=== PATIENT | female | born 1940 | race Caucasian/White ===

== ENCOUNTER 2016-09-08 09:50 | Emergency (ER) | payer MEDICARE, OTHER ==
[2016-09-08 10:13] VITALS: TEMP 97.6; BMI 29.3
[2016-09-08] MEDS ORDERED: SODIUM CHLORIDE 0.9% 10 ML FLUSH FLUSH PRN (10:20)
[2016-09-08] MEDS ORDERED: NS 1,000 ML IV ONE (10:20)
--- NOTE | 2016-09-08 10:53 | DIRPT ---
CLINICAL DATA: Left side numbness starting yesterday EXAM: PORTABLE CHEST 1 VIEW COMPARISON: 04/08/2012 FINDINGS: Cardiomediastinal silhouette is stable. No acute infiltrate or pleural effusion. No pulmonary edema. Mild hyperinflation again noted. Mild atherosclerotic calcifications of thoracic spine. Stable left basilar atelectasis or scarring. IMPRESSION: No active disease. Mild hyperinflation again noted. Electronically Signed By: Chas Saravia M.D. On: 09/08/2016 10:50
[2016-09-08 11:02] LABS: AUTOMATED BASOPHIL 0.4 % (0-2); AUTOMATED EOSINOPHIL 1.7 % (0-5); AUTOMATED LYMPH 32.1 % (17-44); AUTOMATED MONOCYTE 5.6 % (3-10); AUTOMATED NEUTROPHIL 60.2 % (45-76); MPV 7.8 fL (7.4-10.4)
[2016-09-08 11:14] LABS: PARTIAL THROMB. TIME 24.7 SEC (22-35)
[2016-09-08 11:18] LABS: BLOOD UREA NITROGEN 18 MG/DL (7-17); CALCIUM 9.6 MG/DL (8.4-10.2); CALCULATED OSMOLALITY 274 MOs/Kg (270-290); CHLORIDE 102 mEq/L (98-107); GLUCOSE 112 MG/DL (70-99); SODIUM LEVEL 141 mEq/L (137-146); TOTAL PROTEIN 7.4 G/DL (6.3-8.2)
--- NOTE | 2016-09-08 11:19 | DIRPT ---
CLINICAL DATA: Left-sided facial numbness for 24 hours. EXAM: CT HEAD WITHOUT CONTRAST TECHNIQUE: Contiguous axial images were obtained from the base of the skull through the vertex without intravenous contrast. COMPARISON: None. FINDINGS: Ventricles are normal in size, for this patient's age, and normal in configuration. There are no parenchymal masses or mass effect. There is no evidence of a recent cortical infarct. Small lacune infarct lies along the superior right caudate nucleus head. There are no extra-axial masses or abnormal fluid collections. There is no intracranial hemorrhage. Visualized sinuses and mastoid air cells are clear. No skull lesion. IMPRESSION: 1. No acute intracranial abnormalities. 2. Age appropriate volume loss. 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 Electronically Signed By: Uriel Huang M.D. On: 09/08/2016 11:16
--- NOTE | 2016-09-08 11:51 | EDPRACDOC ---
- General Information Chief Complaint: Neuro Symptoms/Deficits Stated Complaint: LT SIDE NUMBNESS Time Seen by Provider: 09/08/16 10:15 Information Source: Patient Home Medications: Home Medications Aspirin [Aspirin EC] 81 mg PO HS 09/08/16 Esomeprazole Magnesium [Nexium] 20 mg PO DAILY 09/08/16 Fenofibrate [Tricor] 145 mg PO DAILY 09/08/16 Furosemide [Lasix] 20 mg PO DAILY 09/08/16 Insulin Detemir [Levemir] 42 unit SQ HS 09/08/16 Losartan Potassium [Cozaar] 100 mg PO DAILY 09/08/16 Rosuvastatin Calcium [Crestor] 40 mg PO DAILY 09/08/16 Sitagliptin Phosphate [Januvia] 100 mg PO DAILY 09/08/16 Allergies/Adverse Reactions: Allergies Allergy/AdvReac Type Severity Reaction Status Date / Time levofloxacin [From Levaquin] Allergy Nausea/Vomi Verified 09/08/16 11:14 ting - History of Present Illness Onset: 09/07/16 1630 HPI: NUMBNESS FOR A COUPLE OF DAYS ON LEFT SIDE. NO WEAKNESS; DENIES OTHER SXS Symptoms Started: Reports: Gradually Weakness: Left: Other Symptoms: Reports: Numbness Associated signs and symptoms:: Reports: None ED Past Medical History - History Reviewed Yes Nurses notes reviewed and agree except as marked - Patient Medical History Respiratory History: Reports: COPD Musculoskeletal History: Reports: Arthritis Systemic History: Denies: Cancer Surgical History: Reports: Cholecystectomy - Social Medical History Smoking Status: Never smoker EDM Review of Systems - Review of Systems ROS Negative Except as Marked: Yes All systems reviewed and were negative except as marked - Physical Exam Constitutional: Alert (Awake), No apparent distress Oriented to: Time, Person, Place Last recorded Vital Signs: Last Vital Signs Temp 97.6 F 09/08/16 10:09 Pulse 62 09/08/16 11:01 Resp 18 09/08/16 11:01 BP 192/79 H 09/08/16 11:01 Pulse Ox 96 09/08/16 11:01 Oxygen Pulse Oxygen Saturation 96 O2 Device Room Air Oxygen Flow Rate Fraction of Inspired Oxygen ( FIO2) - HEENT Head: Normal ( normocephalic) Eye Exam: Normal (PERRL, EOMI, Sclera white) Oropharynx: Normal (Pharynx:Moist without exudate,Gums-no swelling) Tympanic Membrane: Normal ENT EAC: Normal TMJ: Normal Nose: No Symptoms Reported (septum midline) Neck: Normal (FROM, trachea at midline) - Respiratory/Cardiovascular Respiratory: Normal - CTA (BBS clear to auscultation without adventitious sounds ) Cardiovascular: Normal (RRR without murmur, gallop or rub) - GI Auscultation: Normal (NABS) Palpation: Normal (Soft,No rebound or guarding, non distended) Tenderness: Non tender Coker's Sign: Negative - Musculoskeletal Back: Normal (Non-Tender) Extremities: Normal (Normal tone, Pulses 2+ No cyanosis or edema, FROM) - Integumentary Skin: Normal, Warm, Dry Lymphatics: Normal (no adenopathy) - Neurologic Memory Impaired: Normal Motor Function: Normal (Normal tone, Pulses 2+ No cyanosis or edema, FROM) Cranial Nerve: Normal (CN II-X11 intact sensation, strength 5/5) Cerebellar: Normal Mood Description: Normal Perception: Normal - Results 09/08/16 10:40 09/08/16 10:40 WBC 7.4 xk/uL (3.8-10.8) 09/08/16 10:40 RBC 4.60 xM/uL (4.20-5.40) 09/08/16 10:40 Hgb 13.8 g/dL (12.0-16.0) 09/08/16 10:40 Hct 40.2 % (36-47) 09/08/16 10:40 MCV 87 fL (81-99) 09/08/16 10:40 MCH 30.0 pg (27-32) 09/08/16 10:40 MCHC 34.4 g/dl (33-36) 09/08/16 10:40 RDW 14.7 % (11.5-14.5) H 09/08/16 10:40 Plt Count 202 xk/uL (130-400) 09/08/16 10:40 MPV 7.8 fL (7.4-10.4) 09/08/16 10:40 Neut % (Auto) 60.2 % (45-76) 09/08/16 10:40 Lymph % (Auto) 32.1 % (17-44) 09/08/16 10:40 [place] % (Auto) 5.6 % (3-10) 09/08/16 10:40 Eos % (Auto) 1.7 % (0-5) 09/08/16 10:40 Baso % (Auto) 0.4 % (0-2) 09/08/16 10:40 Absolute Neuts (auto) 4.44 xk/uL (1.7-8.2) 09/08/16 10:40 Absolute Lymphs (auto) 2.37 xk/uL (0.65-4.75) 09/08/16 10:40 PT 10.7 SEC (9.2-11.2) 09/08/16 10:40 INR 1.0 09/08/16 10:40 APTT 24.7 SEC (22-35) 09/08/16 10:40 Sodium 141 mEq/L (137-146) 09/08/16 10:40 Potassium 3.8 mEq/L (3.5-5.1) 09/08/16 10:40 Chloride 102 mEq/L (98-107) 09/08/16 10:40 Carbon Dioxide 28 mMOL/L (22-33) 09/08/16 10:40 Anion Gap 15 mEq/L (8-16) 09/08/16 10:40 BUN 18 MG/DL (7-17) H 09/08/16 10:40 Creatinine 0.60 MG/DL (0.52-1.04) 09/08/16 10:40 Estimated GFR (MDRD) > 60 mL/min (>=60) 09/08/16 10:40 Glucose 112 MG/DL (70-99) H 09/08/16 10:40 Calculated Osmolality 274 MOs/Kg (270-290) 09/08/16 10:40 Calcium 9.6 MG/DL (8.4-10.2) 09/08/16 10:40 Total Bilirubin 0.6 MG/DL (0.2-1.3) 09/08/16 10:40 AST 27 IU/L (14-36) 09/08/16 10:40 ALT 34 IU/L (9-52) 09/08/16 10:40 Alkaline Phosphatase 66 IU/L (55-165) 09/08/16 10:40 Troponin I < 0.01 ng/mL (<.04) 09/08/16 10:40 Ore-X-Osmknswvqlz Pept 108 pg/mL (0-900) 09/08/16 10:40 Total Protein 7.4 G/DL (6.3-8.2) 09/08/16 10:40 Albumin 4.3 G/DL (3.5-5.0) 09/08/16 10:40 Lab Results 09/08/16 09/08/16 09/08/16 10:40 10:40 10:40 WBC 7.4 RBC 4.60 Hgb 13.8 Hct 40.2 MCV 87 MCH 30.0 MCHC 34.4 RDW 14.7 H Plt Count 202 MPV 7.8 Neut % (Auto) 60.2 Lymph % (Auto) 32.1 [place] % (Auto) 5.6 Eos % (Auto) 1.7 Baso % (Auto) 0.4 Absolute Neuts (auto) 4.44 Absolute Lymphs (auto) 2.37 PT 10.7 INR 1.0 APTT 24.7 Sodium 141 Potassium 3.8 Chloride 102 Carbon Dioxide 28 Anion Gap 15 BUN 18 H Creatinine 0.60 Estimated GFR (MDRD) > 60 Glucose 112 H Calculated Osmolality 274 Calcium 9.6 Total Bilirubin 0.6 AST 27 ALT 34 Alkaline Phosphatase 66 Troponin I < 0.01 Xtx-O-Icfjlpnswzo Pept 108 Total Protein 7.4 Albumin 4.3 - EKG EKG #1 [place]: Normal Rhythm: NSR Block: None Hypertrophy: None ST: Normal Decision Time to Discharge: 12:59 - Departure Yes I personally saw and evaluated the patient. Disposition: Home Condition: Good Final Diagnosis: LEFT SIDED PARESTHSIAS Instructions: Transient Ischemic Attack (ED) Education/Counseling Given To: Patient Education/Counseling Given Regarding: Diagnosis, Treatment, Prognosis Additional Instructions: CONTINUE ASA DAILY
[2016-09-08 13:11] VITALS: BP 182/77; PULSE 64
== END 2016-09-08 13:43 | disposition home or self-care (01) ==
LOC: ED 09:50
DX: R20.2 Paresthesia of skin (principal)
CPT/HCPCS: 36415; 70450; 71010; 80053; 83880; 84484; 85025; 85610; 85730; 93005; 96360; 99284